=== PATIENT | male | born 1995 | race Caucasian/White ===

== ENCOUNTER 2016-06-29 22:05 | Emergency (ER) | payer OTHER ==
--- NOTE | 2016-06-29 23:01 | ED CLINICAL REPORT ---
Clinical Report - Physicians/Mid Levels [facility] [address] [place] [address] 06/29/2016 22:07 Patient: YAKELIN CORONEL Time Seen: 22:45. Arrived- By private vehicle. Historian- patient and family. HISTORY OF PRESENT ILLNESS Chief Complaint: DENTAL PAIN. This started several days ago. It was gradual in onset and has been constant and waxing/waning. Pain described as moderate. No sore throat or mouth sores. He has had toothache (left lower molar). Recent medical care: The patient was seen recently by a health care provider. ( [facility] dentist today. He was given a referral for extraction but no analgesia by hx.). REVIEW OF SYSTEMS No fever, cough, difficulty breathing or chest pain. PAST HISTORY Illness: Asthma. ADDITIONAL NOTES The nursing notes have been reviewed. PHYSICAL EXAM Vital Signs: 06/29/2016 23:15 BP: 153/87. HR: 104. RR: 16. O2 saturation: 98%. Pain level now: 1/10. 06/29/2016 22:21 BP: 141/83. HR: 104. RR: 16. O2 saturation: 99%. Temp: 98.2 F. Pain level now: 4/10. Appearance: Alert. No acute distress. Eyes: Conjunctivae and eyelids normal. ENT: Moderate dental tenderness (lower left second molar). Pharynx normal. Lips normal. Gums normal. Uvula midline. Neck: Trachea midline. No adenopathy. Respiratory: No respiratory distress. Breath sounds normal. PROGRESS AND PROCEDURES Dental Nerve Block: Landmarks were identified. Topical anesthetic applied. Total volume of 2 mL 0.5% Marcaine infiltrated using a 25-gauge needle. No complications encountered. Excellent anesthesia achieved. ( Posterior inferior alveolar N block). Course of Care: 22:57 06/29/16. R dental block 23:00 06/29/16. Pain 8=>5/10 At discharge he pain was 1/10. CLINICAL IMPRESSION Dental pain. INSTRUCTIONS Do not work today. (SEE REFERRAL DENTIST SUZY). Prescription Medications: Hydrocodone/APAP 5mg / 325mg: take 1-2 orally every 4 hours as needed for pain. Dispense fifteen (15). No refill. Amoxicillin 500 mg capsules: take 1 orally every 8 hours for 7 days. No refills. Understanding of the discharge instructions verbalized by patient. (Electronically signed by Miquel Moctezuma MD 07/02/2016 11:28)
--- NOTE | 2016-06-29 23:01 | ED ORDER SUMMARY ---
..... Patient: YAKELIN CORONEL OrderSheet [facility] VisitID: [id number] [address] [place] [address] 21y, M Registration Date/Time: 06/29/2016 ORDER SHEET Weight: 72.5 kg (stated) Allergies: No Known Drug Allergy GENERAL ORDERS: MEDICATION ORDERS: Amoxicillin PO 500 mg (NOW) (22:59 06/29/2016 Felix FELICIANO) (Ack 23:04 HSoule) (23:15 Rossana Jensen.NEtienne) Bupivacaine Injection 0.5 % (soln) (NOW, place at bedside, with syringes & needles) (23:06 06/29/2016 HSoule verbal order read back to Felix FELICIANO) (23:07 HSoule) IV FLUIDS: ORDER SHEET NOTES: [Electronically signed by Noelle Marx R.N. (23:16 06/29/2016)] [Electronically signed by Miquel Moctezuma MD (11:28 07/02/2016)] [Electronically locked/signed by Noelle Marx R.N. (23:16 06/29/2016)]
--- NOTE | 2016-06-29 23:01 | ED NURSING NOTES ---
Clinical Report - Nurses [facility] [address] [place] [address] 06/29/2016 22:07 Patient: YAKELIN CORONEL TRIAGE Triage time 22:Jun 29 2016. Acuity: LEVEL 4. Chief Complaint: LEFT LOWER TOOTHACHE. Alert. No acute distress. SEPSIS SCREEN: Sepsis Screen. Negative (no infection suspected/documented). --22:25 Noelle Marx R.N. 22:21 06/29/16. BP: 141/83. HR: 104. RR: 16. O2 saturation: 99%. Temp: 98.2 F. Pain level now: 05/21. --22:25 Noelle Marx R.N. Weight: 72.5 kg stated. Height/Length: 72 inches Per Patient. BMI: 21.7. --22:23 Noelle Marx R.N. Medications None. --22:22 Noelle Marx R.N. Allergies No Known Drug Allergy. --22:22 Noelle Marx R.N. History Arrived by private vehicle. Historian: patient. Accompanied by family. Onset. (about 5 days). 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 PAST MEDICAL HX: Immunizations: up-to-date. SOCIAL HX: Smoker- current status unknown. No alcohol use or drug use. No infectious disease exposure. SELF HARM ASSESSMENT: A self harm assessment was performed. The patient answered "no" to the question "Do you have thoughts of harming or killing yourself?". FALL RISK ASSESSMENT: Fall risk assessment completed. No fall risk identified. NUTRITIONAL RISK ASSESSMENT: The nutritional risk assessment revealed no deficiencies. FUNCTIONAL ASSESSMENT: Functional assessment: no impairments noted. LEARNING NEEDS ASSESSMENT: The learning needs assessment revealed no barriers. ABUSE ASSESSMENT: Abuse assessment: The patient was asked "Do you feel safe in your home?". SKIN INTEGRITY ASSESSMENT: Skin integrity risk assessment completed. No skin integrity risk identified. --22:25 Noelle Marx R.N. PROBLEMS: Asthma. --22:23 Noelle Marx R.N. Interventions ID band on patient. --22:25 Noelle Marx R.N. PHYSICAL ASSESSMENT Ambulatory to room. GENERAL / NEURO / PSYCH: Alert. Oriented X 4. Appears in pain. HEENT: Dental decay. RESPIRATORY: Respirations not labored. SKIN: Skin is warm and dry. --22:26 Noelle Marx R.N. NURSING PROGRESS NOTES Patient identifiers checked. Call light placed in reach. Side rails up x 1. Bed placed in lowest position. Brakes of bed on. --22:26 Noelle Marx R.N. 22:57 06/29/2016 Bupivacaine Injection Injectable 0.5 % given. Allergies verified and confirmed 5 rights. (administered by provider at bedside). --23:07 Yolis Silva 23:15 06/29/2016 Amoxicillin PO Capsules 500 mg given. Allergies verified and confirmed 5 rights. --23:15 Noelle Marx R.N. DISPOSITION / DISCHARGE <<STRICKEN ENTRY-- Departure time: :Jun 29 2016. Condition at departure: unchanged. No learning barriers present. Discharge instructions provided and reviewed with the patient. Reviewed referral to a primary care physician. Patient verbalized understanding. Written instructions provided in [place]. The patient was discharged home and accompanied by parent. He left the Emergency Department ambulatory and via private vehicle. Parent driving. FALL RISK ASSESSMENT: Fall risk assessment completed. No fall risk identified. --22:38 Noelle Marx R.N. --END STRIKE>> Charted On Wrong Patient --22:39 Noelle Marx R.N. Departure time: 23:Jun 29 2016. Condition at departure: improved. No learning barriers present. Discharge instructions provided and reviewed with the patient. Patient verbalized understanding. Written instructions provided in [place]. The patient was discharged home and accompanied by spouse. He left the Emergency Department ambulatory and via private vehicle. Spouse driving. FALL RISK ASSESSMENT: Fall risk assessment completed. No fall risk identified. --23:16 Noelle Marx R.N. 23:15 06/29/16. BP: 153/87. HR: 104. RR: 16. O2 saturation: 98%. Pain level now: 02/20. --23:16 Noelle Marx R.N. Locked/Released at 06/29/2016 23:16 by Noelle Marx R.N.
--- NOTE | 2016-06-29 23:01 | ED ORDER SUMMARY ---
..... Patient: YAKELIN CORONEL OrderSheet [facility] VisitID: [id number] [address] [place] [address] 21y, M Registration Date/Time: 06/29/2016 ORDER SHEET Weight: 72.5 kg (stated) Allergies: No Known Drug Allergy GENERAL ORDERS: MEDICATION ORDERS: Amoxicillin PO 500 mg (NOW) (22:59 06/29/2016 Felix FELICIANO) (Ack 23:04 HSoule) (23:15 Rossana Jensen.NEtienne) Bupivacaine Injection 0.5 % (soln) (NOW, place at bedside, with syringes & needles) (23:06 06/29/2016 HSoule verbal order read back to Felix FELICIANO) (23:07 HSoule) IV FLUIDS: ORDER SHEET NOTES: [Electronically signed by Noelle Marx R.N. (23:16 06/29/2016)] [Electronically signed by Miquel Moctezuma MD (11:28 07/02/2016)] [Electronically locked/signed by Noelle Marx R.N. (23:16 06/29/2016)]
--- NOTE | 2016-06-29 23:01 | ED NURSING NOTES ---
Clinical Report - Nurses [facility] [address] [place] [address] 06/29/2016 22:07 Patient: YAKELIN CORONEL TRIAGE Triage time 22:Jun 29 2016. Acuity: LEVEL 4. Chief Complaint: LEFT LOWER TOOTHACHE. Alert. No acute distress. SEPSIS SCREEN: Sepsis Screen. Negative (no infection suspected/documented). --22:25 Noelle Marx R.N. 22:21 06/29/16. BP: 141/83. HR: 104. RR: 16. O2 saturation: 99%. Temp: 98.2 F. Pain level now: 05/21. --22:25 Noelle Marx R.N. Weight: 72.5 kg stated. Height/Length: 72 inches Per Patient. BMI: 21.7. --22:23 Noelle Marx R.N. Medications None. --22:22 Noelle Marx R.N. Allergies No Known Drug Allergy. --22:22 Noelle Marx R.N. History Arrived by private vehicle. Historian: patient. Accompanied by family. Onset. (about 5 days). 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 PAST MEDICAL HX: Immunizations: up-to-date. SOCIAL HX: Smoker- current status unknown. No alcohol use or drug use. No infectious disease exposure. SELF HARM ASSESSMENT: A self harm assessment was performed. The patient answered "no" to the question "Do you have thoughts of harming or killing yourself?". FALL RISK ASSESSMENT: Fall risk assessment completed. No fall risk identified. NUTRITIONAL RISK ASSESSMENT: The nutritional risk assessment revealed no deficiencies. FUNCTIONAL ASSESSMENT: Functional assessment: no impairments noted. LEARNING NEEDS ASSESSMENT: The learning needs assessment revealed no barriers. ABUSE ASSESSMENT: Abuse assessment: The patient was asked "Do you feel safe in your home?". SKIN INTEGRITY ASSESSMENT: Skin integrity risk assessment completed. No skin integrity risk identified. --22:25 Noelle Marx R.N. PROBLEMS: Asthma. --22:23 Noelle Marx R.N. Interventions ID band on patient. --22:25 Noelle Marx R.N. PHYSICAL ASSESSMENT Ambulatory to room. GENERAL / NEURO / PSYCH: Alert. Oriented X 4. Appears in pain. HEENT: Dental decay. RESPIRATORY: Respirations not labored. SKIN: Skin is warm and dry. --22:26 Noelle Marx R.N. NURSING PROGRESS NOTES Patient identifiers checked. Call light placed in reach. Side rails up x 1. Bed placed in lowest position. Brakes of bed on. --22:26 Noelle Marx R.N. 22:57 06/29/2016 Bupivacaine Injection Injectable 0.5 % given. Allergies verified and confirmed 5 rights. (administered by provider at bedside). --23:07 Yolis Silva 23:15 06/29/2016 Amoxicillin PO Capsules 500 mg given. Allergies verified and confirmed 5 rights. --23:15 Noelle Marx R.N. DISPOSITION / DISCHARGE <<STRICKEN ENTRY-- Departure time: :Jun 29 2016. Condition at departure: unchanged. No learning barriers present. Discharge instructions provided and reviewed with the patient. Reviewed referral to a primary care physician. Patient verbalized understanding. Written instructions provided in Cymro. The patient was discharged home and accompanied by parent. He left the Emergency Department ambulatory and via private vehicle. Parent driving. FALL RISK ASSESSMENT: Fall risk assessment completed. No fall risk identified. --22:38 Noelle Marx R.N. --END STRIKE>> Charted On Wrong Patient --22:39 Noelle Marx R.N. Departure time: 23:Jun 29 2016. Condition at departure: improved. No learning barriers present. Discharge instructions provided and reviewed with the patient. Patient verbalized understanding. Written instructions provided in [place]ym[place]. The patient was discharged home and accompanied by spouse. He left the Emergency Department ambulatory and via private vehicle. Spouse driving. FALL RISK ASSESSMENT: Fall risk assessment completed. No fall risk identified. --23:16 Noelle Marx R.N. 23:15 06/29/16. BP: 153/87. HR: 104. RR: 16. O2 saturation: 98%. Pain level now: 02/20. --23:16 Noelle Marx R.N. Locked/Released at 06/29/2016 23:16 by Noelle Marx R.N.
--- NOTE | 2016-06-29 23:01 | ED CLINICAL REPORT ---
Clinical Report - Physicians/Mid Levels [facility] [address] [place] [address] 06/29/2016 22:07 Patient: YAKELIN CORONEL Time Seen: 22:45. Arrived- By private vehicle. Historian- patient and family. HISTORY OF PRESENT ILLNESS Chief Complaint: DENTAL PAIN. This started several days ago. It was gradual in onset and has been constant and waxing/waning. Pain described as moderate. No sore throat or mouth sores. He has had toothache (left lower molar). Recent medical care: The patient was seen recently by a health care provider. ( [facility] dentist today. He was given a referral for extraction but no analgesia by hx.). REVIEW OF SYSTEMS No fever, cough, difficulty breathing or chest pain. PAST HISTORY Illness: Asthma. ADDITIONAL NOTES The nursing notes have been reviewed. PHYSICAL EXAM Vital Signs: 06/29/2016 23:15 BP: 153/87. HR: 104. RR: 16. O2 saturation: 98%. Pain level now: 1/10. 06/29/2016 22:21 BP: 141/83. HR: 104. RR: 16. O2 saturation: 99%. Temp: 98.2 F. Pain level now: 4/10. Appearance: Alert. No acute distress. Eyes: Conjunctivae and eyelids normal. ENT: Moderate dental tenderness (lower left second molar). Pharynx normal. Lips normal. Gums normal. Uvula midline. Neck: Trachea midline. No adenopathy. Respiratory: No respiratory distress. Breath sounds normal. PROGRESS AND PROCEDURES Dental Nerve Block: Landmarks were identified. Topical anesthetic applied. Total volume of 2 mL 0.5% Marcaine infiltrated using a 25-gauge needle. No complications encountered. Excellent anesthesia achieved. ( Posterior inferior alveolar N block). Course of Care: 22:57 06/29/16. R dental block 23:00 06/29/16. Pain 8=>5/10 At discharge he pain was 1/10. CLINICAL IMPRESSION Dental pain. INSTRUCTIONS Do not work today. (SEE REFERRAL DENTIST SUZY). Prescription Medications: Hydrocodone/APAP 5mg / 325mg: take 1-2 orally every 4 hours as needed for pain. Dispense fifteen (15). No refill. Amoxicillin 500 mg capsules: take 1 orally every 8 hours for 7 days. No refills. Understanding of the discharge instructions verbalized by patient. (Electronically signed by Miquel Moctezuma MD 07/02/2016 11:28)
--- NOTE | 2016-07-02 11:28 | ED MAR SUMMARY ---
..... Medication Administration Record [facility] [address] [place] [address] Patient: YAKELIN CORONEL Visit ID: [id number] 21y, M Weight: 72.5 kg Height/Length: 72 in BMI: 21.7 ALLERGIES: No Known Drug Allergy Given 22:57 06/29/2016 Yolis Silva, Medication Administered: BUPIVACAINE [INJECTION], Dose: 0.5 % Injectable Injection. Medication Ordered: Bupivacaine Injection 0.5 % (soln) (NOW, place at bedside, with syringes & needles). Given 23:15 06/29/2016 Noelle Marx R.N. Medication Administered: AMOXICILLIN [PO], Dose: 500 mg Capsules PO. Medication Ordered: Amoxicillin PO 500 mg (NOW).
--- NOTE | 2016-07-02 11:28 | ED DISCHARGE INSTRUCTIONS ---
Patient: YAKELIN CORONEL General Instructions [facility] VisitID: [id number] [place] [address] 21y, M Registration Date/Time: 06/29/2016 Dental pain. INSTRUCTIONS Do not work today. (SEE REFERRAL DENTIST SUZY). Prescription Medications: Hydrocodone/APAP 5mg / 325mg: take 1-2 orally every 4 hours as needed for pain. Dispense fifteen (15). No refill. Amoxicillin 500 mg capsules: take 1 orally every 8 hours for 7 days. No refills. Understanding of the discharge instructions verbalized by patient. ADDITIONAL INFORMATION Dental Pain A crack or cavity in the tooth, which exposes the sensitive inner area of the tooth can cause tooth pain. An infection in the gum or the root of the tooth can cause pain and swelling. The pain is often made worse by drinking hot or cold fluids, or biting on hard foods. Pain may spread from the tooth to the ear or jaw on the same side. Home Care: Avoid hot and cold foods and liquids since your tooth may be sensitive to temperature changes. If your tooth is chipped or cracked, or if there is a large open cavity, apply OIL OF CLOVES (available aoro-gau-jvydeum in drug stores) directly to the tooth to reduce pain. Some pharmacies carry an bdwb-zrp-pxsuvxz "toothache kit." This contains a paste, which can be applied over the exposed tooth to decrease sensitivity. A cold pack on your jaw over the sore area may help reduce pain. You may use acetaminophen (Tylenol) or ibuprofen (Motrin, Advil) to control pain, unless another medicine was prescribed. [ NOTE: If you have chronic liver or kidney disease or ever had a stomach ulcer or GI bleeding, talk with your doctor before using these medicines.] If you have signs of an infection, an antibiotic will be given. Take it as directed. Follow-Up as directed with a dentist. Your pain may go away with the treatment given. However, only a dentist can fully evaluate and treat the cause and prevent the pain from coming back again. TOOTHACHE IS A SIGN OF DISEASE IN YOUR TOOTH AND SHOULD BE EXAMINED AND TREATED BY A DENTIST. Get Prompt Medical Attention if any of the following occur: Your face becomes swollen or red Pain worsens or spreads to the neck Fever over 100.4 F (38.0 C) Unusual drowsiness; headache or stiff neck; weakness or fainting Pus drains from the tooth Difficulty swallowing or breathing Hydrocodone Bitartrate, Acetaminophen Oral tablet What is this medicine? ACETAMINOPHEN; HYDROCODONE (a set a CHEVY sweta fen; sydney droe KOE done) is a pain reliever. It is used to treat mild to moderate pain. How should I use this medicine? Take this medicine by mouth. Swallow it with a full glass of water. Follow the directions on the prescription label. If the medicine upsets your stomach, take the medicine with food or milk. Do not take more than you are told to take. Talk to your power barker operator regarding the use of this medicine in children. This medicine is not approved for use in children. What side effects may I notice from receiving this medicine? Side effects that you should report to your doctor or health child care giver as soon as possible: allergic reactions like skin rash, itching or hives, swelling of the face, lips, or tongue breathing problems confusion feeling faint or lightheaded, falls stomach pain yellowing of the eyes or skin Side effects that usually do not require medical attention (report to your doctor or health child care giver if they continue or are bothersome): nausea, vomiting stomach upset What may interact with this medicine? alcohol antihistamines isoniazid medicines for depression, anxiety, or psychotic disturbances medicines for sleep muscle relaxants naltrexone narcotic medicines (opiates) for pain phenobarbital ritonavir tramadol What if I miss a dose? If you miss a dose, take it as soon as you can. If it is almost time for your next dose, take only that dose. Do not take double or extra doses. Where should I keep my medicine? Keep out of the reach of children. This medicine can be abused. Keep your medicine in a safe place to protect it from theft. Do not share this medicine with anyone. Selling or giving away this medicine is dangerous and against the law. Store at room temperature between 15 and 30 degrees C (59 and 86 degrees F). Protect from light. Keep container tightly closed. Throw away any unused medicine after the expiration date. Discard unused medicine and used packaging carefully. Pets and children can be harmed if they find used or lost packages. What should I tell my health care provider before I take this medicine? They need to know if you have any of these conditions: brain tumor Crohn's disease, inflammatory bowel disease, or ulcerative colitis drink more than 3 alcohol-containing drinks per day drug abuse or addiction head injury heart or circulation problems kidney disease or problems going to the bathroom liver disease lung disease, asthma, or breathing problems an unusual or allergic reaction to acetaminophen, hydrocodone, other opioid analgesics, other medicines, foods, dyes, or preservatives or trying to get breast-feeding What should I watch for while using this medicine? Tell your doctor or health child care giver if your pain does not go away, if it gets worse, or if you have new or a different type of pain. You may develop tolerance to the medicine. Tolerance means that you will need a higher dose of the medicine for pain relief. Tolerance is normal and is expected if you take the medicine for a long time. Do not suddenly stop taking your medicine because you may develop a severe reaction. Your body becomes used to the medicine. This does NOT mean you are addicted. Addiction is a behavior related to getting and using a drug for a non-medical reason. If you have pain, you have a medical reason to take pain medicine. Your doctor will tell you how much medicine to take. If your doctor wants you to stop the medicine, the dose will be slowly lowered over time to avoid any side effects. You may get drowsy or dizzy when you first start taking the medicine or change doses. Do not drive, use machinery, or do anything that may be dangerous until you know how the medicine affects you. Stand or sit up slowly. There are different types of narcotic medicines (opiates) for pain. If you take more than one type at the same time, you may have more side effects. Give your health care provider a list of all medicines you use. Your doctor will tell you how much medicine to take. Do not take more medicine than directed. Call emergency for help if you have problems breathing. The medicine will cause constipation. Try to have a bowel movement at least every 2 to 3 days. If you do not have a bowel movement for 3 days, call your doctor or health child care giver. Too much acetaminophen can be very dangerous. Do not take Tylenol (acetaminophen) or medicines that contain acetaminophen with this medicine. Many non-prescription medicines contain acetaminophen. Always read the labels carefully. Amoxicillin Trihydrate Oral tablet What is this medicine? AMOXICILLIN (a mox i CASEY in) is a penicillin antibiotic. It is used to treat certain kinds of bacterial infections. It will not work for colds, flu, or other viral infections. How should I use this medicine? Take this medicine by mouth with a glass of water. Follow the directions on your prescription label. You may take this medicine with food or on an empty stomach. Take your medicine at regular intervals. Do not take your medicine more often than directed. Take all of your medicine as directed even if you think your are better. Do not skip doses or stop your medicine early. Talk to your power barker operator regarding the use of this medicine in children. While this drug may be prescribed for selected conditions, precautions do apply. What side effects may I notice from receiving this medicine? Side effects that you should report to your doctor or health child care giver as soon as possible: allergic reactions like skin rash, itching or hives, swelling of the face, lips, or tongue breathing problems dark urine redness, blistering, peeling or loosening of the skin, including inside the mouth seizures severe or watery diarrhea trouble passing urine or change in the amount of urine unusual bleeding or bruising unusually weak or tired yellowing of the eyes or skin Side effects that usually do not require medical attention (report to your doctor or health child care giver if they continue or are bothersome): dizziness headache stomach upset trouble sleeping What may interact with this medicine? amiloride control pills chloramphenicol macrolides probenecid sulfonamides tetracyclines What if I miss a dose? If you miss a dose, take it as soon as you can. If it is almost time for your next dose, take only that dose. Do not take double or extra doses. Where should I keep my medicine? Keep out of the reach of children. Store between 68 and 77 degrees F (20 and 25 degrees C). Keep bottle closed tightly. Throw away any unused medicine after the expiration date. What should I tell my health care provider before I take this medicine? They need to know if you have any of these conditions: asthma kidney disease an unusual or allergic reaction to amoxicillin, other penicillins, cephalosporin antibiotics, other medicines, foods, dyes, or preservatives or trying to get breast-feeding What should I watch for while using this medicine? Tell your doctor or health child care giver if your symptoms do not improve in 2 or 3 days. Take all of the doses of your medicine as directed. Do not skip doses or stop your medicine early. If you are diabetic, you may get a false positive result for sugar in your urine with certain brands of urine tests. Check with your doctor. Do not treat diarrhea with jhnp-ncy-zjiipos products. Contact your doctor if you have diarrhea that lasts more than 2 days or if the diarrhea is severe and watery. You have been given the following additional information: Dental Pain Hydrocodone Bitartrate, Acetaminophen Oral tablet Amoxicillin Trihydrate Oral tablet Do not work today. (Electronically signed by Miquel Moctezuma MD 07/02/2016 11:28)
--- NOTE | 2016-07-02 11:28 | ED MED RECONCILIATION SUMMARY ---
Patient: YAKELIN CORONEL Medication Reconciliation Report [facility] VisitID: [id number] [address] [place] [address] 21y, M Registration Date/Time: 06/29/2016 Weight: 72.5 kg Height/Length: 72 in. BMI: 21.7 ALLERGIES: No Known Drug Allergy The patient's Home Medications are listed below: NONE. The source(s) of the original Home Medication information: Not obtained. The following Medications were given to the patient in the Emergency Department: Bupivacaine [Injection] Injection 0.5 %, administered: 06/29/2016 10:57:00 PM Amoxicillin [PO] PO 500 mg, administered: 06/29/2016 11:15:00 PM The following Medications were prescribed to the patient: Hydrocodone/APAP 5mg / 325mg: take 1-2 orally every 4 hours as needed for pain. Dispense fifteen (15). No refill. -- Miquel Moctezuma MD Amoxicillin 500 mg capsules: take 1 orally every 8 hours for 7 days. No refills. -- Miquel Moctezuma MD
--- NOTE | 2016-07-02 11:28 | ED MAR SUMMARY ---
..... Medication Administration Record [facility] [address] [place] [address] Patient: YAKELIN CORONEL Visit ID: [id number] 21y, M Weight: 72.5 kg Height/Length: 72 in BMI: 21.7 ALLERGIES: No Known Drug Allergy Given 22:57 06/29/2016 Yolis Silva, Medication Administered: BUPIVACAINE [INJECTION], Dose: 0.5 % Injectable Injection. Medication Ordered: Bupivacaine Injection 0.5 % (soln) (NOW, place at bedside, with syringes & needles). Given 23:15 06/29/2016 Noelle Marx R.N. Medication Administered: AMOXICILLIN [PO], Dose: 500 mg Capsules PO. Medication Ordered: Amoxicillin PO 500 mg (NOW).
--- NOTE | 2016-07-02 11:28 | ED DISCHARGE INSTRUCTIONS ---
Patient: YAKELIN CORONEL General Instructions [facility] VisitID: [id number] [place] [address] 21y, M Registration Date/Time: 06/29/2016 Dental pain. INSTRUCTIONS Do not work today. (SEE REFERRAL DENTIST SUZY). Prescription Medications: Hydrocodone/APAP 5mg / 325mg: take 1-2 orally every 4 hours as needed for pain. Dispense fifteen (15). No refill. Amoxicillin 500 mg capsules: take 1 orally every 8 hours for 7 days. No refills. Understanding of the discharge instructions verbalized by patient. ADDITIONAL INFORMATION Dental Pain A crack or cavity in the tooth, which exposes the sensitive inner area of the tooth can cause tooth pain. An infection in the gum or the root of the tooth can cause pain and swelling. The pain is often made worse by drinking hot or cold fluids, or biting on hard foods. Pain may spread from the tooth to the ear or jaw on the same side. Home Care: Avoid hot and cold foods and liquids since your tooth may be sensitive to temperature changes. If your tooth is chipped or cracked, or if there is a large open cavity, apply OIL OF CLOVES (available nuhu-fhc-pyuqzme in drug stores) directly to the tooth to reduce pain. Some pharmacies carry an yhif-gri-pujrmyx "toothache kit." This contains a paste, which can be applied over the exposed tooth to decrease sensitivity. A cold pack on your jaw over the sore area may help reduce pain. You may use acetaminophen (Tylenol) or ibuprofen (Motrin, Advil) to control pain, unless another medicine was prescribed. [ NOTE: If you have chronic liver or kidney disease or ever had a stomach ulcer or GI bleeding, talk with your doctor before using these medicines.] If you have signs of an infection, an antibiotic will be given. Take it as directed. Follow-Up as directed with a dentist. Your pain may go away with the treatment given. However, only a dentist can fully evaluate and treat the cause and prevent the pain from coming back again. TOOTHACHE IS A SIGN OF DISEASE IN YOUR TOOTH AND SHOULD BE EXAMINED AND TREATED BY A DENTIST. Get Prompt Medical Attention if any of the following occur: Your face becomes swollen or red Pain worsens or spreads to the neck Fever over 100.4 F (38.0 C) Unusual drowsiness; headache or stiff neck; weakness or fainting Pus drains from the tooth Difficulty swallowing or breathing Hydrocodone Bitartrate, Acetaminophen Oral tablet What is this medicine? ACETAMINOPHEN; HYDROCODONE (a set a CHEVY sweta fen; sydney droe KOE done) is a pain reliever. It is used to treat mild to moderate pain. How should I use this medicine? Take this medicine by mouth. Swallow it with a full glass of water. Follow the directions on the prescription label. If the medicine upsets your stomach, take the medicine with food or milk. Do not take more than you are told to take. Talk to your depalletizer operator regarding the use of this medicine in children. This medicine is not approved for use in children. What side effects may I notice from receiving this medicine? Side effects that you should report to your doctor or health health and social care teacher as soon as possible: allergic reactions like skin rash, itching or hives, swelling of the face, lips, or tongue breathing problems confusion feeling faint or lightheaded, falls stomach pain yellowing of the eyes or skin Side effects that usually do not require medical attention (report to your doctor or health health and social care teacher if they continue or are bothersome): nausea, vomiting stomach upset What may interact with this medicine? alcohol antihistamines isoniazid medicines for depression, anxiety, or psychotic disturbances medicines for sleep muscle relaxants naltrexone narcotic medicines (opiates) for pain phenobarbital ritonavir tramadol What if I miss a dose? If you miss a dose, take it as soon as you can. If it is almost time for your next dose, take only that dose. Do not take double or extra doses. Where should I keep my medicine? Keep out of the reach of children. This medicine can be abused. Keep your medicine in a safe place to protect it from theft. Do not share this medicine with anyone. Selling or giving away this medicine is dangerous and against the law. Store at room temperature between 15 and 30 degrees C (59 and 86 degrees F). Protect from light. Keep container tightly closed. Throw away any unused medicine after the expiration date. Discard unused medicine and used packaging carefully. Pets and children can be harmed if they find used or lost packages. What should I tell my health care provider before I take this medicine? They need to know if you have any of these conditions: brain tumor Crohn's disease, inflammatory bowel disease, or ulcerative colitis drink more than 3 alcohol-containing drinks per day drug abuse or addiction head injury heart or circulation problems kidney disease or problems going to the bathroom liver disease lung disease, asthma, or breathing problems an unusual or allergic reaction to acetaminophen, hydrocodone, other opioid analgesics, other medicines, foods, dyes, or preservatives or trying to get breast-feeding What should I watch for while using this medicine? Tell your doctor or health health and social care teacher if your pain does not go away, if it gets worse, or if you have new or a different type of pain. You may develop tolerance to the medicine. Tolerance means that you will need a higher dose of the medicine for pain relief. Tolerance is normal and is expected if you take the medicine for a long time. Do not suddenly stop taking your medicine because you may develop a severe reaction. Your body becomes used to the medicine. This does NOT mean you are addicted. Addiction is a behavior related to getting and using a drug for a non-medical reason. If you have pain, you have a medical reason to take pain medicine. Your doctor will tell you how much medicine to take. If your doctor wants you to stop the medicine, the dose will be slowly lowered over time to avoid any side effects. You may get drowsy or dizzy when you first start taking the medicine or change doses. Do not drive, use machinery, or do anything that may be dangerous until you know how the medicine affects you. Stand or sit up slowly. There are different types of narcotic medicines (opiates) for pain. If you take more than one type at the same time, you may have more side effects. Give your health care provider a list of all medicines you use. Your doctor will tell you how much medicine to take. Do not take more medicine than directed. Call emergency for help if you have problems breathing. The medicine will cause constipation. Try to have a bowel movement at least every 2 to 3 days. If you do not have a bowel movement for 3 days, call your doctor or health health and social care teacher. Too much acetaminophen can be very dangerous. Do not take Tylenol (acetaminophen) or medicines that contain acetaminophen with this medicine. Many non-prescription medicines contain acetaminophen. Always read the labels carefully. Amoxicillin Trihydrate Oral tablet What is this medicine? AMOXICILLIN (a mox i CASEY in) is a penicillin antibiotic. It is used to treat certain kinds of bacterial infections. It will not work for colds, flu, or other viral infections. How should I use this medicine? Take this medicine by mouth with a glass of water. Follow the directions on your prescription label. You may take this medicine with food or on an empty stomach. Take your medicine at regular intervals. Do not take your medicine more often than directed. Take all of your medicine as directed even if you think your are better. Do not skip doses or stop your medicine early. Talk to your depalletizer operator regarding the use of this medicine in children. While this drug may be prescribed for selected conditions, precautions do apply. What side effects may I notice from receiving this medicine? Side effects that you should report to your doctor or health health and social care teacher as soon as possible: allergic reactions like skin rash, itching or hives, swelling of the face, lips, or tongue breathing problems dark urine redness, blistering, peeling or loosening of the skin, including inside the mouth seizures severe or watery diarrhea trouble passing urine or change in the amount of urine unusual bleeding or bruising unusually weak or tired yellowing of the eyes or skin Side effects that usually do not require medical attention (report to your doctor or health health and social care teacher if they continue or are bothersome): dizziness headache stomach upset trouble sleeping What may interact with this medicine? amiloride control pills chloramphenicol macrolides probenecid sulfonamides tetracyclines What if I miss a dose? If you miss a dose, take it as soon as you can. If it is almost time for your next dose, take only that dose. Do not take double or extra doses. Where should I keep my medicine? Keep out of the reach of children. Store between 68 and 77 degrees F (20 and 25 degrees C). Keep bottle closed tightly. Throw away any unused medicine after the expiration date. What should I tell my health care provider before I take this medicine? They need to know if you have any of these conditions: asthma kidney disease an unusual or allergic reaction to amoxicillin, other penicillins, cephalosporin antibiotics, other medicines, foods, dyes, or preservatives or trying to get breast-feeding What should I watch for while using this medicine? Tell your doctor or health health and social care teacher if your symptoms do not improve in 2 or 3 days. Take all of the doses of your medicine as directed. Do not skip doses or stop your medicine early. If you are diabetic, you may get a false positive result for sugar in your urine with certain brands of urine tests. Check with your doctor. Do not treat diarrhea with jgfm-lzz-nmllhww products. Contact your doctor if you have diarrhea that lasts more than 2 days or if the diarrhea is severe and watery. You have been given the following additional information: Dental Pain Hydrocodone Bitartrate, Acetaminophen Oral tablet Amoxicillin Trihydrate Oral tablet Do not work today. (Electronically signed by Miquel Moctezuma MD 07/02/2016 11:28)
--- NOTE | 2016-07-02 11:28 | ED MED RECONCILIATION SUMMARY ---
Patient: YAKELIN CORONEL Medication Reconciliation Report [facility] VisitID: [id number] [address] [place] [address] 21y, M Registration Date/Time: 06/29/2016 Weight: 72.5 kg Height/Length: 72 in. BMI: 21.7 ALLERGIES: No Known Drug Allergy The patient's Home Medications are listed below: NONE. The source(s) of the original Home Medication information: Not obtained. The following Medications were given to the patient in the Emergency Department: Bupivacaine [Injection] Injection 0.5 %, administered: 06/29/2016 10:57:00 PM Amoxicillin [PO] PO 500 mg, administered: 06/29/2016 11:15:00 PM The following Medications were prescribed to the patient: Hydrocodone/APAP 5mg / 325mg: take 1-2 orally every 4 hours as needed for pain. Dispense fifteen (15). No refill. -- Miquel Moctezuma MD Amoxicillin 500 mg capsules: take 1 orally every 8 hours for 7 days. No refills. -- Miquel Moctezuma MD
== END 2016-06-29 23:15 | disposition home or self-care (01) ==
LOC: ED SRH 22:05
DX: K08.89 Other specified disorders of teeth and supporting structures (principal)